=== PATIENT | male | born 1955 | race Caucasian/White ===

== ENCOUNTER → 2016-08-04 | Outpatient (CLI) | payer OTHER ==
[~2016-08-04] MED LIST: CIALIS5 MG PO; FERROUS SULFATE65 MG PO; MULTIPLE VITAMI1 CAP PO; VITAMIN C500 MG PO
== END ==
LOC: COL.RAD 07:06
DX: R31.21 Asymptomatic microscopic hematuria (principal)
CPT/HCPCS: Q9967

== ENCOUNTER 2017-06-30 05:49 | Day surgery (SDC) | payer OTHER ==
[~2017-06-30] VITALS: Ht 177.8 cm; Wt 104.4 kg
[2017-06-30 06:11] VITALS: BP 128/96; PULSE 89; TEMP 98.1
[2017-06-30] MEDS ORDERED: CATAPRES 0.1MG0.1 MG PO (06:27)
[2017-06-30 07:45] VITALS: BP 134/54; PULSE 77; TEMP 98
[2017-06-30 08:00] VITALS: BP 112/85; PULSE 63
[2017-06-30 08:15] VITALS: BP 119/82; PULSE 68
== END 2017-06-30 08:25 | disposition home or self-care (01) ==
LOC: SDCO 05:49
DX: Z12.11 Encounter for screening for malignant neoplasm of colon (principal); K63.5 Polyp of colon; Z86.010 Personal history of colon polyps; Z85.46 Personal history of malignant neoplasm of prostate
CPT/HCPCS: J2250; J2405; J3010; J7030